=== PATIENT | female | born 1955 | race Caucasian/White ===

== ENCOUNTER 2022-01-27 16:24 | Inpatient (IN) | payer BC, MEDICARE ==
[~2022-01-27] VITALS: Ht 154.9 cm; Wt 108.9 kg
[2022-01-27 17:08] LABS: HEMATOCRIT. 25.6 % (36.0-48.0); HEMOGLOBIN. 8.6 g/dL (12.0-16.0); MEAN CORPUSCULAR HEMOGLOBIN 30.2 pg (28.0-32.0); MEAN CORPUSCULAR VOLUME 89.9 fL (81.0-99.0); MEAN PLATELET VOLUME 8.5 fl (7.4-10.4); PLATELET 259 x1000/uL (130-400); RED BLOOD CELL COUNT 2.85 mill/uL (4.2-5.4); RED CELL DISTRIBUTION WIDTH 15.7 % (11.6-14.6)
[2022-01-27 17:12] LABS: CHLORIDE 95 mEq/L (98-107)
[2022-01-27] MEDS ORDERED: ASPIRIN 325MG EC TABLET PO ONE (17:15)
[2022-01-27] MEDS ORDERED: NITROGLYCERIN 0.4MG TABLET SL SL ONE (17:15)
[2022-01-27] MEDS ORDERED: FAMOTIDINE 20MG/2ML VIAL IV ONE (18:15)
[2022-01-27 18:23] LABS: PLATELET ESTIMATE NORMAL
[2022-01-27] MEDS ORDERED: AZITHROMYCIN 500MG/250ML 250 ML IV ONE (22:15)
[2022-01-27] MEDS ORDERED: CEFTRIAXONE 1 G PREMIX 50 ML IV ONE (22:15)
[2022-01-27] MEDS ORDERED: ENOXAPARIN 80MG/0.8ML SYR SUBCUT ONE (23:00)
[2022-01-27] MEDS ORDERED: IOHEXOL-350 100 ML BOTTLE ONE (23:36)
[2022-01-28] MEDS ORDERED: VISCOUS LIDOCAINE 2% 15 ML UDC PO PRN ×2 (03:00→03:15)
[2022-01-28] MEDS ORDERED: MAGNESIUM/ALUMINUM HYDROXIDE/SIMETHICONE 30ML UDC PO PRN ×2 (03:00→11:45)
[2022-01-28] MEDS: ACETAMINOPHEN 325MG TABLET PO PRN ×2 (03:19→12:56)
[2022-01-28 10:18] LABS: INR 1.1; PROTHROMBIN TIME 11.8 sec (9.6-11.0)
[2022-01-28 10:20] VITALS: BP 159/63
[2022-01-28] MEDS ORDERED: ENOXAPARIN 100MG/ML SYR SUBCUT SCH (11:30)
[2022-01-28] MEDS ORDERED: NALOXONE HCL 0.4MG/ML VIAL IV PRN (11:45)
[2022-01-28] MEDS ORDERED: DEXTROSE 50% WATER 50ML SYRINGE IV PRN ×2 (11:45)
[2022-01-28 12:00] VITALS: BP 141/55
[2022-01-28] MEDS: BLOOD SUGAR DIAGNOSTIC STRIP TEST SCH ×3 (12:21→21:50)
[2022-01-28] MEDS: INSULIN LISPRO 100 UNITS/ML SUBCUT SCH ×3 (12:21→22:23)
[2022-01-28 13:02] LABS: TOTAL IRON BINDING CAPACITY 136 ug/dL (250-450)
[2022-01-28] MEDS ORDERED: LOSA100T32 MT (13:38)
[2022-01-28 16:00] VITALS: BP 138/72
[2022-01-28] MEDS ORDERED: GLIP2.5T3 PO (17:43)
[2022-01-28] MEDS ORDERED: LEVO137T2 MT (17:43)
[2022-01-28] MEDS ORDERED: DILT300T10 PO (17:43)
[2022-01-28] MEDS ORDERED: HYDR-4135 PO (17:43)
[2022-01-28] MEDS ORDERED: EPOE20002 IJ (17:43)
[2022-01-28] MEDS ORDERED: DILT300C25 MT (17:43)
[2022-01-28] MEDS ORDERED: TRAZ-251 PO (17:43)
[2022-01-28 20:00] VITALS: BP 166/68
[2022-01-28] MEDS ORDERED: EPOETIN ALFA-EPBX 10,000 UNIT/ML VIAL SUBCUT SCH (21:00)
[2022-01-28] MEDS ORDERED: EPOETIN ALFA-EPBX 4,000 UNIT/ML VIAL SUBCUT SCH (21:00)
[2022-01-28] MEDS ORDERED: EPOETIN ALFA 2,000 UNIT/ML VIAL SUBCUT SCH (21:00)
[2022-01-28] MEDS: CEFTRIAXONE 1,000 MG in DEXTROSE 5% WATER 50 ML IV SCH (21:50)
[2022-01-28] MEDS: ENOXAPARIN 100MG/ML SYR SUBCUT SCH (21:51)
[2022-01-28] MEDS: ONDANSETRON HCL 4MG/2ML INJ IV PRN (22:06)
[2022-01-28] MEDS: CLONIDINE 0.1MG TABLET PO PRN (22:50)
[2022-01-28] MEDS: HYDROCODONE/ACETAMINOPHEN 5/325MG TABLET PO PRN (22:50)
[2022-01-29] VITALS: BP 102/69
[2022-01-29 00:19] LABS: CREATINE KINASE MB FRACTION 5.2 ng/mL (0.5-3.6)
[2022-01-29 04:00] VITALS: BP 136/67
[2022-01-29] MEDS: ACETAMINOPHEN 325MG TABLET PO PRN ×2 (06:40→18:47)
[2022-01-29] MEDS: BLOOD SUGAR DIAGNOSTIC STRIP TEST SCH ×4 (06:41→21:49)
[2022-01-29] MEDS: LEVOTHYROXINE SODIUM 137MCG TABLET PO SCH (06:41)
[2022-01-29] MEDS: OMEPRAZOLE 20MG CAPSULE EXTENDED RELEASE PO SCH (06:49)
[2022-01-29 07:38] LABS: HEMATOCRIT. 26.8 % (36.0-48.0); HEMOGLOBIN. 8.7 g/dL (12.0-16.0); MEAN CORPUSCULAR HEMOGLOBIN 29.5 pg (28.0-32.0); MEAN CORPUSCULAR VOLUME 90.5 fL (81.0-99.0); MEAN PLATELET VOLUME 8.6 fl (7.4-10.4); PLATELET 270 x1000/uL (130-400); RED BLOOD CELL COUNT 2.96 mill/uL (4.2-5.4); RED CELL DISTRIBUTION WIDTH 16.2 % (11.6-14.6)
[2022-01-29 07:39] LABS: PHOSPHORUS 5.8 mg/dL (2.5-4.9)
[2022-01-29 07:41] LABS: T4 FREE 0.95 ng/dL (0.76-1.46)
[2022-01-29] MEDS: INSULIN LISPRO 100 UNITS/ML SUBCUT SCH ×4 (07:42→21:00)
[2022-01-29 08:00] VITALS: BP 150/57
[2022-01-29] MEDS: GLIPIZIDE XL 2.5MG TABLET PO SCH (08:57)
[2022-01-29] MEDS ORDERED: HYDRALAZINE HCL 50MG TABLET PO SCH (09:00)
[2022-01-29] MEDS ORDERED: DILTIAZEM HCL 300MG CAPSULE SR 24HR PO SCH (09:00)
[2022-01-29 12:00] VITALS: BP 137/50
[2022-01-29 16:00] VITALS: BP 145/50
[2022-01-29] MEDS: NITROGLYCERIN 0.4MG TABLET SL SL PRN ×2 (17:16→17:44)
[2022-01-29] MEDS: METOPROLOL TARTRATE 50MG TABLET PO SCH (17:43)
[2022-01-29] MEDS: HYDROCODONE/ACETAMINOPHEN 5/325MG TABLET PO PRN (18:48)
[2022-01-29 19:19] LABS: PLATELET ESTIMATE NORMAL
[2022-01-29] MEDS: ONDANSETRON HCL 4MG/2ML INJ IV PRN (19:47)
[2022-01-29 19:53] VITALS: BP 139/57
[2022-01-29] MEDS: CEFTRIAXONE 1,000 MG in DEXTROSE 5% WATER 50 ML IV SCH (21:49)
[2022-01-29] MEDS: ENOXAPARIN 100MG/ML SYR SUBCUT SCH (21:49)
[2022-01-30] VITALS: BP 153/48
[2022-01-30 01:38] LABS: CLARITY URINE CLOUDY (CLEAR); COLOR URINE YELLOW (YELLOW); KETONES URINE TRACE (NEGATIVE); LEUKOCYTE ESTERASE URINE 2+ (NEGATIVE); NITRITE URINE NEGATIVE (NEGATIVE); OCCULT BLOOD URINE TRACE (NEGATIVE); PROTEIN URINE 3+ (NEGATIVE); SPECIFIC GRAVITY URINE 1.026 (1.005-1.030); UROBILINOGEN URINE 0.2 E.U./dL (0.2-1.0)
[2022-01-30] MEDS: ACETAMINOPHEN 325MG TABLET PO PRN ×2 (01:58→12:19)
[2022-01-30 04:00] VITALS: BP 160/55
[2022-01-30] MEDS: METOPROLOL TARTRATE 50MG TABLET PO SCH ×2 (05:33→17:39)
[2022-01-30] MEDS: BLOOD SUGAR DIAGNOSTIC STRIP TEST SCH ×4 (06:39→21:04)
[2022-01-30] MEDS: LEVOTHYROXINE SODIUM 137MCG TABLET PO SCH (06:40)
[2022-01-30] MEDS: OMEPRAZOLE 20MG CAPSULE EXTENDED RELEASE PO SCH (06:40)
[2022-01-30 07:13] LABS: HEMATOCRIT. 26.5 % (36.0-48.0); HEMOGLOBIN. 8.7 g/dL (12.0-16.0); MEAN CORPUSCULAR HEMOGLOBIN 29.9 pg (28.0-32.0); MEAN CORPUSCULAR VOLUME 90.6 fL (81.0-99.0); MEAN PLATELET VOLUME 8.2 fl (7.4-10.4); PLATELET 256 x1000/uL (130-400); RED BLOOD CELL COUNT 2.93 mill/uL (4.2-5.4); RED CELL DISTRIBUTION WIDTH 16.1 % (11.6-14.6)
[2022-01-30] MEDS: INSULIN LISPRO 100 UNITS/ML SUBCUT SCH ×4 (07:32→21:00)
[2022-01-30 08:00] VITALS: BP 158/62
[2022-01-30] MEDS: GLIPIZIDE XL 2.5MG TABLET PO SCH (08:50)
[2022-01-30] MEDS ORDERED: LOSARTAN POTASSIUM 50 MG TABLET PO SCH (09:00)
[2022-01-30 10:48] LABS: PLATELET ESTIMATE NORMAL
[2022-01-30] MEDS ORDERED: IPRATROPIUM/ALBUTEROL 0.5-3(2.5)MG/3ML NEB HHN PRN (11:15)
[2022-01-30 12:00] VITALS: BP 163/57
[2022-01-30] MEDS: CLONIDINE 0.1MG TABLET PO PRN (12:19)
[2022-01-30] MEDS: ASPIRIN 81MG EC TABLET PO SCH (12:19)
[2022-01-30 16:00] VITALS: BP 146/60
[2022-01-30] MEDS: LOSARTAN POTASSIUM 50 MG TABLET PO SCH (17:38)
[2022-01-30 20:00] VITALS: BP 157/52
[2022-01-30] MEDS ORDERED: EPOETIN ALFA-EPBX 10,000 UNIT/ML VIAL SUBCUT SCH (21:00)
[2022-01-30] MEDS: CEFTRIAXONE 1,000 MG in DEXTROSE 5% WATER 50 ML IV SCH (21:13)
[2022-01-30] MEDS: ENOXAPARIN 100MG/ML SYR SUBCUT SCH (21:13)
[2022-01-31] VITALS (7 sets, daily range): BP systolic 115–177; BP diastolic 48–70
[2022-01-31] MEDS: METOPROLOL TARTRATE 50MG TABLET PO SCH ×2 (06:00→17:47)
[2022-01-31] MEDS: OMEPRAZOLE 20MG CAPSULE EXTENDED RELEASE PO SCH (06:20)
[2022-01-31] MEDS: LEVOTHYROXINE SODIUM 137MCG TABLET PO SCH (06:20)
[2022-01-31] MEDS: BLOOD SUGAR DIAGNOSTIC STRIP TEST SCH ×4 (06:27→21:48)
[2022-01-31 07:47] LABS: HEMATOCRIT. 28.4 % (36.0-48.0); HEMOGLOBIN. 9.2 g/dL (12.0-16.0); MEAN CORPUSCULAR HEMOGLOBIN 29.5 pg (28.0-32.0); MEAN CORPUSCULAR VOLUME 90.8 fL (81.0-99.0); MEAN PLATELET VOLUME 8.4 fl (7.4-10.4); PLATELET 253 x1000/uL (130-400); RED BLOOD CELL COUNT 3.13 mill/uL (4.2-5.4); RED CELL DISTRIBUTION WIDTH 16.1 % (11.6-14.6)
[2022-01-31] MEDS: INSULIN LISPRO 100 UNITS/ML SUBCUT SCH ×4 (07:50→21:00)
[2022-01-31] MEDS: GLIPIZIDE XL 2.5MG TABLET PO SCH (08:08)
[2022-01-31] MEDS: ASPIRIN 81MG EC TABLET PO SCH (09:03)
[2022-01-31] MEDS: LOSARTAN POTASSIUM 50 MG TABLET PO SCH ×2 (09:04→17:45)
[2022-01-31] MEDS ORDERED: OXYMETAZOLINE HCL NASAL SPRAY 15ML BOTHNSTRLS PRN (12:00)
[2022-01-31] MEDS: ACETAMINOPHEN 325MG TABLET PO PRN (17:46)
[2022-01-31] MEDS: CLONIDINE 0.1MG TABLET PO PRN ×2 (17:46→23:20)
[2022-01-31] MEDS: CEFTRIAXONE 1,000 MG in DEXTROSE 5% WATER 50 ML IV SCH (20:14)
[2022-01-31] MEDS: ENOXAPARIN 100MG/ML SYR SUBCUT SCH (20:15)
[2022-01-31] MEDS: AMLODIPINE 2.5MG TABLET PO SCH (20:15)
[2022-02-01] MEDS: ACETAMINOPHEN 325MG TABLET PO PRN (01:32)
[2022-02-01] MEDS: MORPHINE SULFATE 4 MG/ML CPJ (NOT FOR IM USE) IV PRN ×2 (02:53→13:20)
[2022-02-01 03:47] VITALS: BP 160/62
[2022-02-01] MEDS: METOPROLOL TARTRATE 50MG TABLET PO SCH ×2 (05:51→17:52)
[2022-02-01] MEDS: BLOOD SUGAR DIAGNOSTIC STRIP TEST SCH ×3 (06:22→17:20)
[2022-02-01] MEDS: LEVOTHYROXINE SODIUM 137MCG TABLET PO SCH (06:22)
[2022-02-01] MEDS ORDERED: FAMOTIDINE 20MG TABLET PO SCH (07:20)
[2022-02-01 07:56] LABS: PLATELET ESTIMATE NORMAL
[2022-02-01 08:00] VITALS: BP 151/42
[2022-02-01 08:48] LABS: HEMATOCRIT. 23.5 % (36.0-48.0); HEMOGLOBIN. 7.9 g/dL (12.0-16.0); MEAN CORPUSCULAR VOLUME 89.2 fL (81.0-99.0); PLATELET 269 x1000/uL (130-400); RED BLOOD CELL COUNT 2.63 mill/uL (4.2-5.4); RED CELL DISTRIBUTION WIDTH 16.1 % (11.6-14.6)
[2022-02-01] MEDS: LOSARTAN POTASSIUM 50 MG TABLET PO SCH ×2 (09:06→17:00)
[2022-02-01] MEDS: ASPIRIN 81MG EC TABLET PO SCH (09:06)
[2022-02-01] MEDS: AMLODIPINE 2.5MG TABLET PO SCH (09:06)
[2022-02-01] MEDS: INSULIN LISPRO 100 UNITS/ML SUBCUT SCH ×3 (09:06→17:50)
[2022-02-01 10:51] LABS: PLATELET ESTIMATE NORMAL
[2022-02-01 12:00] VITALS: BP 160/42
[2022-02-01] MEDS: CLONIDINE 0.1MG TABLET PO PRN (13:19)
[2022-02-01] MEDS ORDERED: ASPI-1406 PO (15:49)
[2022-02-01 16:00] VITALS: BP 120/45
[2022-02-01 17:35] VITALS: BP 120/45
[2022-02-01] MEDS: ONDANSETRON HCL 4MG/2ML INJ IV PRN (18:32)
== END 2022-02-01 19:00 | disposition home or self-care (01) | DRG 871 ==
LOC: ER 16:24 → 6WST 01-28 00:34 → EDBEDREQ 01-28 08:00
PROVIDERS: ADMIT Internal Medicine; ATTEND Internal Medicine
PROC: 3E1M39Z Irrigation of Peritoneal Cavity using Dialysate, Percutaneous Approach (ICD-10-PCS; principal; 2022-01-28)
DX: A41.9 Sepsis, unspecified organism (principal); J18.9 Pneumonia, unspecified organism; J96.01 Acute respiratory failure with hypoxia; I21.4 Non-ST elevation (NSTEMI) myocardial infarction; N18.6 End stage renal disease; E44.0 Moderate protein-calorie malnutrition; I13.2 Hypertensive heart and chronic kidney disease with heart failure and with stage 5 chronic kidney disease, or end stage renal disease; N39.0 Urinary tract infection, site not specified; E66.2 Morbid (severe) obesity with alveolar hypoventilation; Z68.42 Body mass index [BMI] 45.0-49.9, adult; D50.9 Iron deficiency anemia, unspecified; D63.8 Anemia in other chronic diseases classified elsewhere; E03.9 Hypothyroidism, unspecified; E11.22 Type 2 diabetes mellitus with diabetic chronic kidney disease; E11.649 Type 2 diabetes mellitus with hypoglycemia without coma; R07.81 Pleurodynia; E78.00 Pure hypercholesterolemia, unspecified; E78.5 Hyperlipidemia, unspecified; I27.20 Pulmonary hypertension, unspecified; I48.91 Unspecified atrial fibrillation; R04.0 Epistaxis; U09.9 Post COVID-19 condition, unspecified; Z20.822 Contact with and (suspected) exposure to COVID-19; Z99.2 Dependence on renal dialysis; Z88.8 Allergy status to other drugs, medicaments and biological substances; R79.89 Other specified abnormal findings of blood chemistry
CPT/HCPCS: 36415; 71045; 71275; 80048; 80053; 80061; 80076; 81003; 82550; 82553; 82962; 83036; 83540; 83550; 83605; 83735; 83880; 84100; 84145; 84439; 84443; 84484; 85025; 85379; 87426; 93005; 93306; 93970; 99285; A6261; C1893; J0456; J0696; J0885; J1650; J1815; J2270; J2405; J3490; J7060; Q9967

== ENCOUNTER 2023-02-08 05:47 | Inpatient (IN) | payer MEDICARE ==
[~2023-02-08] VITALS: Ht 165.1 cm; Wt 108.4 kg
[~2023-02-08 05:47] MED LIST: ASPI-1406 PO; DILT300T10 PO; EPOE20002 IJ; HYDR-4135 PO; LEVO137T2 MT; LOSA100T32 MT; TRAZ-251 PO
[2023-02-08 06:29] LABS: BG CARBOXYHEMOGLOBIN 0.6 % (0.5-1.5); BG DEOXYHEMOGLOBIN 9.5 % (0.0-5.0); BG FRACTION INSPIRED OXYGEN 36; BG HCO3 ACT 26.2 mmol/L (22.0-26.0); BG METHEMOGLOBIN 0.1 % (0.0-1.5); BG OXYGEN SATURATION 90.4 % (92.0-98.5); BG OXYHEMOGLOBIN 89.8 % (94.0-97.0); BG PH 7.392 (7.350-7.450); BG PO2 64.5 mmHg (75.0-100.0); BG SAMPLE SITE LEFT BRACHIAL; BG TOTAL HEMOGLOBIN 9.8 g/dL (12.0-18.0); BG VENT MODE NASAL CANNULA
[2023-02-08 06:45] LABS: HEMATOCRIT. 27.2 % (36.0-48.0); HEMOGLOBIN. 8.8 g/dL (12.0-16.0); MEAN CORPUSCULAR HEMOGLOBIN 31.4 pg (28.0-32.0); MEAN CORPUSCULAR VOLUME 97.4 fL (81.0-99.0); MEAN PLATELET VOLUME 9.4 fl (7.4-10.4); PLATELET 237 x1000/uL (130-400); RED CELL DISTRIBUTION WIDTH 16.6 % (11.6-14.6)
[2023-02-08 07:04] LABS: PROTHROMBIN TIME 10.3 sec (9.6-11.0)
[2023-02-08] MEDS ORDERED: AZITHROMYCIN 500MG/250ML 250 ML IV ONE (07:15)
[2023-02-08] MEDS ORDERED: CEFTRIAXONE 1GM PREMIX 50 ML IV ONE (07:15)
[2023-02-08 09:25] LABS: PLATELET ESTIMATE NORMAL
[2023-02-08 09:55] LABS: CHLORIDE 103 mEq/L (98-107)
[2023-02-08] MEDS ORDERED: ALBUTEROL (0.083%) 2.5MG/3ML NEB HHN ONE (12:15)
[2023-02-08] MEDS ORDERED: DEXTROSE 50% WATER 50ML SYRINGE IV ONE (12:15)
[2023-02-08] MEDS ORDERED: INSULIN REGULAR (HUMULIN R) 300UNITS/3ML VIAL IV ONE (12:15)
[2023-02-08] MEDS ORDERED: SODIUM BICARBONATE 8.4% 1 MEQ/ML 50ML SYR IV ONE (12:15)
[2023-02-08] MEDS ORDERED: SODIUM POLYSTYRENE SULFONATE 15 G/60 ML BOT PO ONE (12:15)
[2023-02-08] MEDS ORDERED: CALCIUM CHLORIDE 1GM/10ML SYR IV ONE (12:15)
[2023-02-08] MEDS ORDERED: IPRATROPIUM/ALBUTEROL 0.5-3(2.5)MG/3ML NEB HHN PRN (13:30)
[2023-02-08] MEDS ORDERED: HYDRALAZINE 20MG/ML VIAL IV NR (20:30)
[2023-02-08 22:00] VITALS: BP 150/62
[2023-02-08] MEDS ORDERED: ZOLPIDEM TARTRATE 5MG TABLET PO PRN (22:45)
[2023-02-08] MEDS ORDERED: ONDANSETRON HCL 4MG/2ML INJ IV PRN (22:45)
[2023-02-08 23:11] VITALS: BP 149/54
[2023-02-08] MEDS: DILTIAZEM HCL 300MG CAPSULE SR 24HR PO SCH (23:34)
[2023-02-08] MEDS: HYDRALAZINE HCL 50MG TABLET PO SCH (23:34)
[2023-02-08] MEDS: ENOXAPARIN 30MG/0.3ML SYR SUBCUT SCH (23:35)
[2023-02-09] VITALS (22 sets, daily range): BP systolic 101–176; BP diastolic 51–84
[2023-02-09 01:10] LABS: HEPATITIS B SURFACE ANTIGEN NEGATIVE
[2023-02-09] MEDS: HYDRALAZINE HCL 50MG TABLET PO SCH (05:23)
[2023-02-09 07:16] LABS: BASOPHILS % 0.7 % (0.0-2.0); EOSINOPHILS % 6.9 % (0.0-5.0); HEMATOCRIT. 28.1 % (36.0-48.0); HEMOGLOBIN. 9.2 g/dL (12.0-16.0); LYMPHOCYTES % 13.9 % (20.0-50.0); MEAN CORPUSCULAR HEMOGLOBIN 31.7 pg (28.0-32.0); MEAN CORPUSCULAR VOLUME 96.9 fL (81.0-99.0); MEAN PLATELET VOLUME 8.9 fl (7.4-10.4); MONOCYTES % 10.1 % (2.0-8.0); NEUTROPHILS % 68.4 % (40.0-76.0); PLATELET 234 x1000/uL (130-400); RED CELL DISTRIBUTION WIDTH 16.5 % (11.6-14.6)
[2023-02-09 07:45] LABS: CREATINE KINASE MB FRACTION 1.7 ng/mL (0.5-3.6)
[2023-02-09] MEDS: DILTIAZEM HCL 300MG CAPSULE SR 24HR PO SCH (09:00)
[2023-02-09] MEDS: LOSARTAN POTASSIUM 100 MG TABLET PO SCH (09:00)
[2023-02-09] MEDS ORDERED: AZITHROMYCIN 500 MG in DEXT 5% WATER 250 ML IV SCH ×2 (09:00→14:00)
[2023-02-09] MEDS: ACETAMINOPHEN 650MG/20.3ML UDC GT PRN (09:48)
[2023-02-09] MEDS: LEVOTHYROXINE SODIUM 137MCG TABLET PO SCH (09:48)
[2023-02-09] MEDS: ASPIRIN 81MG EC TABLET PO SCH (09:49)
[2023-02-09] MEDS ORDERED: IPRATROPIUM BROMIDE (0.02%) 0.5MG/2.5ML NEB HHN PRN (11:30)
[2023-02-09] MEDS ORDERED: ALBUTEROL (0.083%) 2.5MG/3ML NEB HHN PRN (11:30)
[2023-02-09] MEDS ORDERED: CEFTRIAXONE 1GM PREMIX 50 ML IV SCH (13:30)
[2023-02-09] MEDS: CEFTRIAXONE 1,000 MG in DEXTROSE 5% WATER 50 ML IV SCH (13:30)
[2023-02-09] MEDS: HYDRALAZINE HCL 100MG TABLET PO SCH ×2 (13:34→21:05)
[2023-02-09] MEDS: ENOXAPARIN 30MG/0.3ML SYR SUBCUT SCH (20:47)
[2023-02-09] MEDS ORDERED: TRAZODONE HCL 50MG TABLET PO SCH (21:00)
[2023-02-10] VITALS (15 sets, daily range): BP systolic 138–170; BP diastolic 50–84
[2023-02-10] MEDS: ACETAMINOPHEN 650MG/20.3ML UDC GT PRN (04:18)
[2023-02-10] MEDS: HYDRALAZINE HCL 100MG TABLET PO SCH (05:10)
[2023-02-10] MEDS: CEFTRIAXONE 1,000 MG in DEXTROSE 5% WATER 50 ML IV SCH (08:21)
[2023-02-10] MEDS: ASPIRIN 81MG EC TABLET PO SCH (08:22)
[2023-02-10] MEDS: LOSARTAN POTASSIUM 100 MG TABLET PO SCH (08:22)
[2023-02-10] MEDS: LEVOTHYROXINE SODIUM 137MCG TABLET PO SCH (08:22)
[2023-02-10] MEDS: DILTIAZEM HCL 300MG CAPSULE SR 24HR PO SCH (08:26)
[2023-02-10] MEDS ORDERED: CLONIDINE 0.1MG TABLET PO SCH (09:00)
[2023-02-10] MEDS ORDERED: CLON0.1T PO (10:26)
== END 2023-02-10 15:32 | disposition home or self-care (01) | DRG 871 ==
LOC: ER 05:47 → 5EST 22:05
PROVIDERS: ADMIT Internal Medicine; ATTEND Internal Medicine
PROC: 5A09357 Assistance with Respiratory Ventilation, Less than 24 Consecutive Hours, Continuous Positive Airway Pressure (ICD-10-PCS; 2023-02-08)
PROC: 5A1D80Z Performance of Urinary Filtration, Prolonged Intermittent, 6-18 hours Per Day (ICD-10-PCS; principal; 2023-02-09)
PROC: 5A09357 Assistance with Respiratory Ventilation, Less than 24 Consecutive Hours, Continuous Positive Airway Pressure (ICD-10-PCS; 2023-02-09)
PROC: 5A1D80Z Performance of Urinary Filtration, Prolonged Intermittent, 6-18 hours Per Day (ICD-10-PCS; 2023-02-10)
DX: A41.9 Sepsis, unspecified organism (principal); I50.31 Acute diastolic (congestive) heart failure; J18.9 Pneumonia, unspecified organism; J96.01 Acute respiratory failure with hypoxia; N18.6 End stage renal disease; I13.2 Hypertensive heart and chronic kidney disease with heart failure and with stage 5 chronic kidney disease, or end stage renal disease; E87.5 Hyperkalemia; G47.33 Obstructive sleep apnea (adult) (pediatric); E03.9 Hypothyroidism, unspecified; D72.825 Bandemia; D64.9 Anemia, unspecified; E66.9 Obesity, unspecified; E11.22 Type 2 diabetes mellitus with diabetic chronic kidney disease; Z20.822 Contact with and (suspected) exposure to COVID-19; I07.1 Rheumatic tricuspid insufficiency; E78.00 Pure hypercholesterolemia, unspecified; Z79.4 Long term (current) use of insulin; Z68.39 Body mass index [BMI] 39.0-39.9, adult; Z99.2 Dependence on renal dialysis; Z88.2 Allergy status to sulfonamides; Z86.16 Personal history of COVID-19
CPT/HCPCS: 36415; 36600; 71045; 80048; 80053; 82375; 82550; 82553; 82805; 82962; 83880; 84484; 85025; 86705; 86709; 86803; 86850; 86900; 87340; 87426; 87804; 90935; 93005; 93306; 93970; 94640; 94660; 99291; C9803; J0360; J0456; J0696; J1650; J1815; J3490; J7060

== ENCOUNTER 2023-08-20 00:07 | Inpatient (IN) | payer MEDICARE ==
[~2023-08-20] VITALS: Ht 152.4 cm; Wt 99.4 kg
[2023-08-20] VITALS (8 sets, daily range): BP systolic 129–158; BP diastolic 60–79; PULSE 67–89; RESP 16–28; TEMP 97–97.7
[~2023-08-20 00:07] MED LIST changes: +CLON0.1T PO; -LOSA100T32 MT; +LOSA100T33 MT
[2023-08-20 00:45] LABS: BASOPHILS % 0.9 % (0.0-2.0); EOSINOPHILS % 3.6 % (0.0-5.0); HEMOGLOBIN. 10.4 g/dL (12.0-16.0); LYMPHOCYTES % 7.4 % (20.0-50.0); MEAN CORPUSCULAR HEMOGLOBIN 31.5 pg (28.0-32.0); MEAN CORPUSCULAR HGB CONC 32.4 g/dL (31.0-37.0); MEAN CORPUSCULAR VOLUME 97.3 fL (81.0-99.0); MEAN PLATELET VOLUME 9.8 fl (7.4-10.4); NEUTROPHILS % 83.1 % (40.0-76.0); PLATELET 186 x1000/uL (130-400); RED BLOOD CELL COUNT 3.29 mill/uL (4.2-5.4); RED CELL DISTRIBUTION WIDTH 17.1 % (11.6-14.6); WHITE BLOOD COUNT 9.9 x1000/uL (4.5-11.0)
[2023-08-20 00:46] LABS: CHLORIDE 101 mEq/L (98-107); INDEX HEMOLYSI 1 (1-3); INDEX ICTERIC 1 (1-4); INDEX LIPEMIC 1 (1-3); SODIUM 135 mEq/L (136-145)
[2023-08-20 00:56] LABS: ALANINE AMINOTRANSFERASE 43 IU/L (13-61); ALBUMIN 3.4 g/dL (3.4-5.0); ASPARTATE AMINOTRANSFERASE 28 IU/L (15-37); BILIRUBIN TOTAL 0.4 mg/dL (0.1-1.0); CALCIUM 9.4 mg/dL (8.5-10.1); CARBON DIOXIDE 24 mEq/L (21-32); ETHANOL BLOOD < 10 mg/dL (<10); GLUCOSE 321 mg/dL (70-105); NT PRO B-TYPE NATRIURETIC PEP 14660 pg/mL (5-125); PROTEIN TOTAL 7.4 g/dL (6.0-8.3); TROPONIN I HIGH SENSITIVITY 23 ng/L (<54)
[2023-08-20 01:20] LABS: CREATININE 8.8 mg/dL (0.6-1.3); UREA NITROGEN BLOOD 88 mg/dL (7-21)
[2023-08-20] MEDS ORDERED: CLONIDINE 0.2MG TABLET PO ONE (01:30)
[2023-08-20] MEDS ORDERED: HYDRALAZINE 20MG/ML VIAL IV ONE (01:30)
[2023-08-20] MEDS ORDERED: CLONIDINE 0.1MG TABLET PO NR (02:00)
[2023-08-20] MEDS ORDERED: NICARDIPINE 50 MG in SODIUM CHLORIDE 0.9% 230 ML IV PRN ×4 (04:30)
[2023-08-20] MEDS ORDERED: NITROGLYCERIN OINT 1GM/INCH UDPKT TD NR (04:45)
[2023-08-20] MEDS ORDERED: FUROSEMIDE 40MG/4ML VIAL IV NR (04:45)
[2023-08-20] MEDS ORDERED: ONDANSETRON HCL 4MG/2ML INJ IV PRN (13:15)
[2023-08-20] MEDS ORDERED: DEXTROSE 50% WATER 50ML SYRINGE IV PRN (13:15)
[2023-08-20] MEDS ORDERED: ALTEPLASE 2MG/VIAL ITC SCH (18:00)
[2023-08-20] MEDS: BLOOD SUGAR DIAGNOSTIC STRIP TEST SCH (20:56)
[2023-08-20] MEDS: HYDRALAZINE HCL 50MG TABLET PO SCH (20:57)
[2023-08-20] MEDS: ACETAMINOPHEN 325MG TABLET PO PRN (20:57)
[2023-08-20] MEDS: INSULIN LISPRO 100 UNITS/ML SUBCUT SCH (20:57)
[2023-08-20 22:40] LABS: HEPATITIS B SURFACE ANTIGEN NEGATIVE
[2023-08-20 23:06] LABS: HEPATITIS B CORE AB IGM NEGATIVE; HEPATITIS C VIR.AB 0.14 INDEXVAL (0.00-0.80)
[2023-08-20 23:08] LABS: HEPATITIS A AB IGM NEGATIVE (NEGATIVE)
[2023-08-21] VITALS (18 sets, daily range): BP systolic 129–175; BP diastolic 52–96; PULSE 68–81; RESP 16–24; TEMP 97–97.8
[2023-08-21] MEDS: HYDROCODONE/ACETAMINOPHEN 10/325MG TABLET PO PRN ×3 (02:04→17:01)
[2023-08-21] MEDS ORDERED: NALOXONE HCL 0.4MG/ML VIAL IV PRN (02:15)
[2023-08-21] MEDS: INSULIN LISPRO 100 UNITS/ML SUBCUT SCH ×4 (05:45→21:00)
[2023-08-21] MEDS: BLOOD SUGAR DIAGNOSTIC STRIP TEST SCH ×4 (05:45→21:00)
[2023-08-21] MEDS: HYDRALAZINE 20MG/ML VIAL IV PRN (05:53)
[2023-08-21 09:12] LABS: *AMPHETAMINES SCREEN URINE NEGATIVE (NEGATIVE); *BARBITURATES SCREEN URINE NEGATIVE (NEGATIVE); *BENZODIAZEPINES SCREEN URINE NEGATIVE (NEGATIVE); *COCAINE SCREEN URINE NEGATIVE (NEGATIVE); CANNABINOID URINE SCREEN NEGATIVE (NEGATIVE); ECSTASY MDMA SCREEN URINE NEGATIVE (NEGATIVE); METHADONE URINE SCREEN NEGATIVE (NEGATIVE); OPIATES URINE SCREEN NEGATIVE (NEGATIVE); PHENCYCLIDINE URINE SCREEN NEGATIVE (NEGATIVE)
[2023-08-21] MEDS: NIFEDIPINE XL 60MG TAB PO SCH ×2 (09:35→09:38)
[2023-08-21] MEDS: HYDRALAZINE HCL 50MG TABLET PO SCH ×2 (09:35→21:18)
[2023-08-21] MEDS: IPRATROPIUM/ALBUTEROL 0.5-3(2.5)MG/3ML NEB HHN PRN (10:06)
[2023-08-21] MEDS: ENOXAPARIN 40MG/0.4ML SYR SUBCUT SCH (12:53)
[2023-08-21] MEDS: ACETAMINOPHEN 325MG TABLET PO PRN (21:19)
[2023-08-22] VITALS (30 sets, daily range): BP systolic 91–170; BP diastolic 33–126; PULSE 78–108; RESP 16–30; TEMP 97.5–98.7
[2023-08-22] MEDS: FUROSEMIDE 40MG/4ML VIAL IVP SCH ×2 (00:27→08:47)
[2023-08-22] MEDS: BLOOD SUGAR DIAGNOSTIC STRIP TEST SCH ×4 (06:48→20:37)
[2023-08-22] MEDS: INSULIN LISPRO 100 UNITS/ML SUBCUT SCH ×4 (08:10→20:38)
[2023-08-22] MEDS: NIFEDIPINE XL 60MG TAB PO SCH (08:47)
[2023-08-22] MEDS: HYDRALAZINE HCL 50MG TABLET PO SCH (08:47)
[2023-08-22 10:55] LABS: BG BASE EXCESS -7.6 mmol/L (-2.0-2.0); BG CARBOXYHEMOGLOBIN 0.3 % (0.5-1.5); BG DEOXYHEMOGLOBIN 8.5 % (0.0-5.0); BG FRACTION INSPIRED OXYGEN 100; BG HCO3 ACT 21.1 mmol/L (22.0-26.0); BG METHEMOGLOBIN 0.2 % (0.0-1.5); BG OXYGEN SATURATION 91.5 % (92.0-98.5); BG PCO2 59.1 mmHg (35.0-45.0); BG PH 7.171 (7.350-7.450); BG PO2 71.9 mmHg (75.0-100.0); BG SAMPLE SITE RIGHT RADIAL; BG TOTAL HEMOGLOBIN 10.9 g/dL (12.0-18.0); BG TOTAL RESPIRATORY RATE 17 b/min; BG VENT MODE MASK - BIPAP
[2023-08-22] MEDS: IPRATROPIUM/ALBUTEROL 0.5-3(2.5)MG/3ML NEB HHN PRN (11:00)
[2023-08-22] MEDS: IPRATROPIUM/ALBUTEROL 0.5-3(2.5)MG/3ML NEB HHN SCH ×2 (12:37→15:11)
[2023-08-22 13:37] LABS: BG BASE EXCESS -7.9 mmol/L (-2.0-2.0); BG CARBOXYHEMOGLOBIN 0.3 % (0.5-1.5); BG DEOXYHEMOGLOBIN 11.5 % (0.0-5.0); BG FRACTION INSPIRED OXYGEN 100; BG HCO3 ACT 20.5 mmol/L (22.0-26.0); BG METHEMOGLOBIN 0.1 % (0.0-1.5); BG OXYGEN SATURATION 88.5 % (92.0-98.5); BG OXYHEMOGLOBIN 88.1 % (94.0-97.0); BG PCO2 55.8 mmHg (35.0-45.0); BG PH 7.184 (7.350-7.450); BG PO2 63.4 mmHg (75.0-100.0); BG SAMPLE SITE RIGHT RADIAL; BG TOTAL HEMOGLOBIN 10.8 g/dL (12.0-18.0); BG TOTAL RESPIRATORY RATE 30 b/min; BG VENT MODE MASK - BIPAP
[2023-08-22 15:35] LABS: DIFFERENTIAL COMMENT 1; HEMATOCRIT. 31.8 % (36.0-48.0); HEMOGLOBIN. 10.2 g/dL (12.0-16.0); MEAN CORPUSCULAR HEMOGLOBIN 31.7 pg (28.0-32.0); MEAN CORPUSCULAR HGB CONC 32.1 g/dL (31.0-37.0); MEAN CORPUSCULAR VOLUME 98.7 fL (81.0-99.0); MEAN PLATELET VOLUME 9.8 fl (7.4-10.4); PLATELET 150 x1000/uL (130-400); RED BLOOD CELL COUNT 3.22 mill/uL (4.2-5.4); RED CELL DISTRIBUTION WIDTH 16.8 % (11.6-14.6); WHITE BLOOD COUNT 4.6 x1000/uL (4.5-11.0)
[2023-08-22 15:45] LABS: CHLORIDE 99 mEq/L (98-107); INDEX HEMOLYSI 1 (1-3); INDEX ICTERIC 1 (1-4); INDEX LIPEMIC 1 (1-3); POTASSIUM 5.3 mEq/L (3.5-5.1); SODIUM 133 mEq/L (136-145)
[2023-08-22 15:52] LABS: ALANINE AMINOTRANSFERASE 37 IU/L (13-61); ALBUMIN 2.8 g/dL (3.4-5.0); ASPARTATE AMINOTRANSFERASE 30 IU/L (15-37); BILIRUBIN TOTAL 0.6 mg/dL (0.1-1.0); CALCIUM 8.4 mg/dL (8.5-10.1); CARBON DIOXIDE 22 mEq/L (21-32); GLUCOSE 119 mg/dL (70-105); PROTEIN TOTAL 7.1 g/dL (6.0-8.3); UREA NITROGEN BLOOD 68 mg/dL (7-21)
[2023-08-22 16:02] LABS: CREATININE 7.9 mg/dL (0.6-1.3)
[2023-08-22] MEDS: METHYLPREDNISOLONE SOD SUCC 40MG/ML (ACT-O-VIAL) IV SCH (16:11)
[2023-08-22] MEDS: ENOXAPARIN 40MG/0.4ML SYR SUBCUT SCH (16:11)
[2023-08-22 18:04] LABS: PLATELET ESTIMATE NORMAL
[2023-08-22 18:46] LABS: BG BASE EXCESS -10.6 mmol/L (-2.0-2.0); BG CARBOXYHEMOGLOBIN 0.3 % (0.5-1.5); BG FRACTION INSPIRED OXYGEN 100; BG HCO3 ACT 17.1 mmol/L (22.0-26.0); BG METHEMOGLOBIN 0.2 % (0.0-1.5); BG OXYHEMOGLOBIN 92.5 % (94.0-97.0); BG PH 7.189 (7.350-7.450); BG PO2 78.8 mmHg (75.0-100.0); BG SAMPLE SITE RIGHT RADIAL; BG TOTAL HEMOGLOBIN 10.7 g/dL (12.0-18.0); BG VENT MODE VENT - AC
[2023-08-22] MEDS: PROPOFOL 10MG/ML 100ML 100 ML IV PRN (19:06)
[2023-08-23] VITALS (78 sets, daily range): BP systolic 122–182; BP diastolic 43–126; PULSE 82–115; RESP 16–28; TEMP 98–99.8
[2023-08-23] MEDS: METHYLPREDNISOLONE SOD SUCC 40MG/ML (ACT-O-VIAL) IV SCH ×3 (00:13→16:23)
[2023-08-23] MEDS: FUROSEMIDE 40MG/4ML VIAL IVP SCH ×3 (00:13→21:23)
[2023-08-23] MEDS: HYDRALAZINE HCL 50MG TABLET PO SCH ×3 (00:14→21:23)
[2023-08-23] MEDS: HYDRALAZINE 20MG/ML VIAL IV PRN (02:08)
[2023-08-23] MEDS: PROPOFOL 10MG/ML 100ML 100 ML IV PRN ×3 (04:07→20:34)
[2023-08-23 04:41] LABS: HEMOGLOBIN. 9.6 g/dL (12.0-16.0); MEAN CORPUSCULAR HEMOGLOBIN 31.7 pg (28.0-32.0); MEAN CORPUSCULAR HGB CONC 33.2 g/dL (31.0-37.0); MEAN CORPUSCULAR VOLUME 95.6 fL (81.0-99.0); MEAN PLATELET VOLUME 10.4 fl (7.4-10.4); PLATELET 142 x1000/uL (130-400); RED BLOOD CELL COUNT 3.03 mill/uL (4.2-5.4); RED CELL DISTRIBUTION WIDTH 17.1 % (11.6-14.6); WHITE BLOOD COUNT 12.8 x1000/uL (4.5-11.0)
[2023-08-23 04:58] LABS: CALCIUM 8.8 mg/dL (8.5-10.1)
[2023-08-23] MEDS: HYDROCODONE/ACETAMINOPHEN 10/325MG TABLET PO PRN (05:02)
[2023-08-23 05:03] LABS: CREATININE 5.3 mg/dL (0.6-1.3)
[2023-08-23 05:15] LABS: DIFFERENTIAL COMMENT 1
[2023-08-23] MEDS: BLOOD SUGAR DIAGNOSTIC STRIP TEST SCH ×4 (06:32→21:00)
[2023-08-23] MEDS: INSULIN LISPRO 100 UNITS/ML SUBCUT SCH ×4 (06:39→21:31)
[2023-08-23] MEDS: IPRATROPIUM/ALBUTEROL 0.5-3(2.5)MG/3ML NEB HHN SCH ×4 (07:41→20:50)
[2023-08-23 09:47] LABS: BG CARBOXYHEMOGLOBIN 0.1 % (0.5-1.5); BG DEOXYHEMOGLOBIN 1.9 % (0.0-5.0); BG FRACTION INSPIRED OXYGEN 100; BG METHEMOGLOBIN 0.9 % (0.0-1.5); BG OXYGEN SATURATION 98.1 % (92.0-98.5); BG OXYHEMOGLOBIN 97.1 % (94.0-97.0); BG PCO2 47.1 mmHg (35.0-45.0); BG PH 7.342 (7.350-7.450); BG PO2 150.6 mmHg (75.0-100.0); BG SAMPLE SITE RIGHT RADIAL; BG TOTAL HEMOGLOBIN 9.9 g/dL (12.0-18.0); BG VENT MODE VENT - AC
[2023-08-23] MEDS: NIFEDIPINE XL 60MG TAB PO SCH (09:59)
[2023-08-23 11:17] LABS: ANISOCYTOSIS 1+; PLATELET ESTIMATE NORMAL
[2023-08-23] MEDS: ENOXAPARIN 40MG/0.4ML SYR SUBCUT SCH (12:49)
[2023-08-23] MEDS ORDERED: VANCOMYCIN 1,750 MG in DEXT 5% WATER 500 ML IV NR (14:00)
[2023-08-23 18:11] LABS: HEPATITIS B SURFACE ANTIGEN NEGATIVE
[2023-08-23] MEDS: PIPERACILLIN/TAZOBACTAM 3.375 G in DEXTROSE 5% WATER 50 ML IV SCH (18:29)
[2023-08-23 18:39] LABS: HEPATITIS C VIR.AB 0.14 INDEXVAL (0.00-0.80)
[2023-08-23 18:40] LABS: HEPATITIS B CORE AB IGM NEGATIVE
[2023-08-23 18:41] LABS: HEPATITIS A AB IGM NEGATIVE (NEGATIVE)
[2023-08-24] VITALS (93 sets, daily range): BP systolic 129–186; BP diastolic 45–94; PULSE 78–100; RESP 19–25; TEMP 98–99.2
[2023-08-24] MEDS: IPRATROPIUM/ALBUTEROL 0.5-3(2.5)MG/3ML NEB HHN SCH ×6 (00:01→21:11)
[2023-08-24] MEDS: METHYLPREDNISOLONE SOD SUCC 40MG/ML (ACT-O-VIAL) IV SCH ×4 (01:02→21:44)
[2023-08-24] MEDS: PROPOFOL 10MG/ML 100ML 100 ML IV PRN ×5 (01:47→21:20)
[2023-08-24 05:20] LABS: HEMATOCRIT. 28.2 % (36.0-48.0); HEMOGLOBIN. 9.1 g/dL (12.0-16.0); MEAN CORPUSCULAR HGB CONC 32.2 g/dL (31.0-37.0); MEAN CORPUSCULAR VOLUME 96.1 fL (81.0-99.0); MEAN PLATELET VOLUME 10.3 fl (7.4-10.4); PLATELET 188 x1000/uL (130-400); RED BLOOD CELL COUNT 2.94 mill/uL (4.2-5.4); WHITE BLOOD COUNT 17.6 x1000/uL (4.5-11.0)
[2023-08-24 05:25] LABS: DIFFERENTIAL COMMENT 1
[2023-08-24 05:53] LABS: POTASSIUM 4.4 mEq/L (3.5-5.1)
[2023-08-24 06:04] LABS: CALCIUM 9.5 mg/dL (8.5-10.1); CREATININE 4.8 mg/dL (0.6-1.3)
[2023-08-24] MEDS: BLOOD SUGAR DIAGNOSTIC STRIP TEST SCH ×4 (06:13→21:28)
[2023-08-24] MEDS: INSULIN LISPRO 100 UNITS/ML SUBCUT SCH ×4 (06:20→21:44)
[2023-08-24] MEDS: PIPERACILLIN/TAZOBACTAM 3.375 G in DEXTROSE 5% WATER 50 ML IV SCH ×2 (08:28→21:00)
[2023-08-24 08:58] LABS: BG BASE EXCESS -3.8 mmol/L (-2.0-2.0); BG CARBOXYHEMOGLOBIN 0.3 % (0.5-1.5); BG DEOXYHEMOGLOBIN 3.2 % (0.0-5.0); BG FRACTION INSPIRED OXYGEN 70; BG HCO3 ACT 21.2 mmol/L (22.0-26.0); BG METHEMOGLOBIN 0.1 % (0.0-1.5); BG OXYGEN SATURATION 96.8 % (92.0-98.5); BG OXYHEMOGLOBIN 96.4 % (94.0-97.0); BG PCO2 38.4 mmHg (35.0-45.0); BG PO2 94.2 mmHg (75.0-100.0); BG SAMPLE SITE RIGHT BRACHIAL; BG TOTAL HEMOGLOBIN 9.8 g/dL (12.0-18.0); BG VENT MODE VENT - AC
[2023-08-24] MEDS: NIFEDIPINE XL 60MG TAB PO SCH ×2 (09:00→15:21)
[2023-08-24] MEDS: HYDRALAZINE HCL 50MG TABLET PO SCH ×3 (09:00→21:44)
[2023-08-24] MEDS: PANTOPRAZOLE SODIUM 40 MG/VIAL IV SCH (09:07)
[2023-08-24] MEDS: FUROSEMIDE 40MG/4ML VIAL IVP SCH ×2 (09:07→21:43)
[2023-08-24] MEDS: ENOXAPARIN 40MG/0.4ML SYR SUBCUT SCH (09:14)
[2023-08-24 09:22] LABS: ANISOCYTOSIS 1+; PLATELET ESTIMATE NORMAL
[2023-08-24] MEDS: HYDRALAZINE 20MG/ML VIAL IV PRN ×3 (11:09→18:57)
[2023-08-24] MEDS ORDERED: EPOETIN ALFA 4000UNITS/ML VIAL SUBCUT SCH (21:00)
[2023-08-25] VITALS (64 sets, daily range): BP systolic 112–183; BP diastolic 39–82; PULSE 86–100; RESP 18–26; TEMP 97.8–99
[2023-08-25] MEDS: IPRATROPIUM/ALBUTEROL 0.5-3(2.5)MG/3ML NEB HHN SCH ×6 (00:54→20:40)
[2023-08-25] MEDS: HYDRALAZINE 20MG/ML VIAL IV PRN ×2 (01:04→07:29)
[2023-08-25 05:13] LABS: HEMATOCRIT. 29.1 % (36.0-48.0); HEMOGLOBIN. 9.3 g/dL (12.0-16.0); MEAN CORPUSCULAR HGB CONC 31.8 g/dL (31.0-37.0); MEAN CORPUSCULAR VOLUME 97.5 fL (81.0-99.0); MEAN PLATELET VOLUME 9.7 fl (7.4-10.4); PLATELET 196 x1000/uL (130-400); RED BLOOD CELL COUNT 2.99 mill/uL (4.2-5.4); RED CELL DISTRIBUTION WIDTH 17.4 % (11.6-14.6); WHITE BLOOD COUNT 15.2 x1000/uL (4.5-11.0)
[2023-08-25 05:15] LABS: POTASSIUM 4.2 mEq/L (3.5-5.1)
[2023-08-25 05:20] LABS: CALCIUM 8.7 mg/dL (8.5-10.1); CREATININE 4.2 mg/dL (0.6-1.3)
[2023-08-25 05:23] LABS: DIFFERENTIAL COMMENT 1
[2023-08-25] MEDS: BLOOD SUGAR DIAGNOSTIC STRIP TEST SCH ×4 (06:30→21:44)
[2023-08-25] MEDS: METHYLPREDNISOLONE SOD SUCC 40MG/ML (ACT-O-VIAL) IV SCH ×3 (06:38→21:36)
[2023-08-25] MEDS: INSULIN LISPRO 100 UNITS/ML SUBCUT SCH ×4 (06:38→21:44)
[2023-08-25 07:42] LABS: BG BASE EXCESS -3.7 mmol/L (-2.0-2.0); BG CARBOXYHEMOGLOBIN 0.3 % (0.5-1.5); BG DEOXYHEMOGLOBIN 5.6 % (0.0-5.0); BG HCO3 ACT 21.1 mmol/L (22.0-26.0); BG OXYGEN SATURATION 94.4 % (92.0-98.5); BG OXYHEMOGLOBIN 94.1 % (94.0-97.0); BG PCO2 37.1 mmHg (35.0-45.0); BG PH 7.372 (7.350-7.450); BG PO2 74.4 mmHg (75.0-100.0); BG SAMPLE SITE RIGHT RADIAL; BG TOTAL HEMOGLOBIN 10.3 g/dL (12.0-18.0); BG VENT MODE VENT - AC
[2023-08-25] MEDS ORDERED: LIDOCAINE HCL 1% 10 MG/ML 10ML VIAL ONE (08:18)
[2023-08-25] MEDS: FUROSEMIDE 40MG/4ML VIAL IVP SCH ×3 (09:00→21:00)
[2023-08-25] MEDS: HYDRALAZINE HCL 50MG TABLET PO SCH (09:00)
[2023-08-25] MEDS: PIPERACILLIN/TAZOBACTAM 3.375 G in DEXTROSE 5% WATER 50 ML IV SCH ×2 (10:31→21:33)
[2023-08-25] MEDS: PANTOPRAZOLE SODIUM 40 MG/VIAL IV SCH (10:31)
[2023-08-25] MEDS: NIFEDIPINE XL 60MG TAB PO SCH (10:32)
[2023-08-25] MEDS: ENOXAPARIN 40MG/0.4ML SYR SUBCUT SCH (10:32)
[2023-08-25 16:05] LABS: ANISOCYTOSIS 1+; PLATELET ESTIMATE NORMAL
[2023-08-25] MEDS ORDERED: VANCOMYCIN 750MG PREMIX 150 ML IV SCH (21:00)
[2023-08-25] MEDS: HYDRALAZINE HCL 100MG TABLET PO SCH (21:37)
[2023-08-26] VITALS (54 sets, daily range): BP systolic 104–178; BP diastolic 48–66; PULSE 76–96; RESP 17–26; TEMP 97.8–98.9; O2SAT 94
[2023-08-26] MEDS: ACETAMINOPHEN 325MG TABLET PO PRN ×4 (00:16→07:47)
[2023-08-26] MEDS: HYDROCODONE/ACETAMINOPHEN 10/325MG TABLET PO PRN (00:23)
[2023-08-26] MEDS: IPRATROPIUM/ALBUTEROL 0.5-3(2.5)MG/3ML NEB HHN SCH ×6 (00:35→20:18)
[2023-08-26] MEDS: METHYLPREDNISOLONE SOD SUCC 40MG/ML (ACT-O-VIAL) IV SCH ×3 (06:11→21:55)
[2023-08-26] MEDS: INSULIN LISPRO 100 UNITS/ML SUBCUT SCH ×4 (06:11→21:00)
[2023-08-26] MEDS: BLOOD SUGAR DIAGNOSTIC STRIP TEST SCH ×4 (06:34→22:00)
[2023-08-26] MEDS: NIFEDIPINE XL 60MG TAB PO SCH (07:48)
[2023-08-26] MEDS: HYDRALAZINE HCL 100MG TABLET PO SCH ×3 (07:49→23:54)
[2023-08-26] MEDS: ENOXAPARIN 40MG/0.4ML SYR SUBCUT SCH (07:49)
[2023-08-26] MEDS: FUROSEMIDE 40MG/4ML VIAL IVP SCH ×2 (07:50→21:55)
[2023-08-26] MEDS: PANTOPRAZOLE SODIUM 40 MG/VIAL IV SCH (07:52)
[2023-08-26] MEDS: PIPERACILLIN/TAZOBACTAM 3.375 G in DEXTROSE 5% WATER 50 ML IV SCH ×2 (07:52→21:55)
[2023-08-26] MEDS ORDERED: HYDRALAZINE 20MG/ML VIAL IV SCH (08:00)
[2023-08-26 11:03] LABS: BG BASE EXCESS -1.7 mmol/L (-2.0-2.0); BG CARBOXYHEMOGLOBIN 0.3 % (0.5-1.5); BG DEOXYHEMOGLOBIN 6.4 % (0.0-5.0); BG FRACTION INSPIRED OXYGEN 40; BG HCO3 ACT 23.4 mmol/L (22.0-26.0); BG METHEMOGLOBIN 0.1 % (0.0-1.5); BG OXYGEN SATURATION 93.6 % (92.0-98.5); BG OXYHEMOGLOBIN 93.2 % (94.0-97.0); BG PH 7.374 (7.350-7.450); BG PO2 71.4 mmHg (75.0-100.0); BG SAMPLE SITE RIGHT RADIAL; BG TOTAL HEMOGLOBIN 11.4 g/dL (12.0-18.0); BG VENT MODE VENT - AC
[2023-08-26] MEDS ORDERED: CLONIDINE 0.1MG TABLET PO PRN (11:15)
[2023-08-26 13:27] LABS: BG BASE EXCESS -2.6 mmol/L (-2.0-2.0); BG CARBOXYHEMOGLOBIN 0.3 % (0.5-1.5); BG DEOXYHEMOGLOBIN 6.9 % (0.0-5.0); BG FRACTION INSPIRED OXYGEN 40; BG HCO3 ACT 22.5 mmol/L (22.0-26.0); BG METHEMOGLOBIN 0.3 % (0.0-1.5); BG OXYGEN SATURATION 93.1 % (92.0-98.5); BG OXYHEMOGLOBIN 92.5 % (94.0-97.0); BG PCO2 40.4 mmHg (35.0-45.0); BG PH 7.364 (7.350-7.450); BG PO2 70.9 mmHg (75.0-100.0); BG SAMPLE SITE RIGHT RADIAL; BG TOTAL HEMOGLOBIN 11.5 g/dL (12.0-18.0); BG VENT MODE VENT - CPAP
[2023-08-27] VITALS (39 sets, daily range): BP systolic 119–177; BP diastolic 45–70; PULSE 74–95; RESP 12–26; TEMP 98.4–98.6; O2SAT 93–99
[2023-08-27] MEDS: IPRATROPIUM/ALBUTEROL 0.5-3(2.5)MG/3ML NEB HHN SCH ×4 (00:02→12:45)
[2023-08-27] MEDS ORDERED: HYDRALAZINE HCL 100MG TABLET PO NR (05:00)
[2023-08-27 05:55] LABS: HEMATOCRIT. 31.4 % (36.0-48.0); HEMOGLOBIN. 10.1 g/dL (12.0-16.0); MEAN CORPUSCULAR HEMOGLOBIN 30.9 pg (28.0-32.0); MEAN CORPUSCULAR HGB CONC 32.2 g/dL (31.0-37.0); MEAN CORPUSCULAR VOLUME 95.9 fL (81.0-99.0); MEAN PLATELET VOLUME 9.6 fl (7.4-10.4); PLATELET 166 x1000/uL (130-400); RED BLOOD CELL COUNT 3.27 mill/uL (4.2-5.4); RED CELL DISTRIBUTION WIDTH 16.7 % (11.6-14.6)
[2023-08-27 06:03] LABS: DIFFERENTIAL COMMENT 1
[2023-08-27 06:05] LABS: CALCIUM 8.4 mg/dL (8.5-10.1); POTASSIUM 4.3 mEq/L (3.5-5.1)
[2023-08-27 06:08] LABS: CREATININE 3.7 mg/dL (0.6-1.3)
[2023-08-27] MEDS: BLOOD SUGAR DIAGNOSTIC STRIP TEST SCH ×4 (06:15→21:18)
[2023-08-27] MEDS: METHYLPREDNISOLONE SOD SUCC 40MG/ML (ACT-O-VIAL) IV SCH (06:18)
[2023-08-27] MEDS: INSULIN LISPRO 100 UNITS/ML SUBCUT SCH ×4 (06:22→21:28)
[2023-08-27] MEDS: HYDRALAZINE HCL 100MG TABLET PO SCH ×2 (09:16→17:51)
[2023-08-27] MEDS: PANTOPRAZOLE SODIUM 40 MG/VIAL IV SCH (09:16)
[2023-08-27] MEDS: NIFEDIPINE XL 60MG TAB PO SCH (09:17)
[2023-08-27] MEDS: PIPERACILLIN/TAZOBACTAM 3.375 G in DEXTROSE 5% WATER 50 ML IV SCH ×2 (09:17→21:18)
[2023-08-27] MEDS: ENOXAPARIN 40MG/0.4ML SYR SUBCUT SCH (09:17)
[2023-08-27 12:27] LABS: PLATELET ESTIMATE NORMAL
[2023-08-28] VITALS (33 sets, daily range): BP systolic 98–160; BP diastolic 41–66; PULSE 72–96; RESP 13–21; TEMP 97.2–98.6
[2023-08-28] MEDS: HYDRALAZINE HCL 100MG TABLET PO SCH ×3 (00:27→18:43)
[2023-08-28] MEDS: BLOOD SUGAR DIAGNOSTIC STRIP TEST SCH ×4 (06:43→21:06)
[2023-08-28] MEDS: INSULIN LISPRO 100 UNITS/ML SUBCUT SCH ×4 (06:52→21:05)
[2023-08-28 10:08] LABS: HEMATOCRIT. 34.3 % (36.0-48.0); HEMOGLOBIN. 11.1 g/dL (12.0-16.0); MEAN CORPUSCULAR HEMOGLOBIN 30.8 pg (28.0-32.0); MEAN CORPUSCULAR HGB CONC 32.3 g/dL (31.0-37.0); MEAN CORPUSCULAR VOLUME 95.6 fL (81.0-99.0); MEAN PLATELET VOLUME 9.8 fl (7.4-10.4); PLATELET 175 x1000/uL (130-400); RED BLOOD CELL COUNT 3.58 mill/uL (4.2-5.4); RED CELL DISTRIBUTION WIDTH 16.6 % (11.6-14.6); WHITE BLOOD COUNT 18.8 x1000/uL (4.5-11.0)
[2023-08-28] MEDS: ENOXAPARIN 40MG/0.4ML SYR SUBCUT SCH (10:11)
[2023-08-28] MEDS: PIPERACILLIN/TAZOBACTAM 3.375 G in DEXTROSE 5% WATER 50 ML IV SCH ×2 (10:12→21:06)
[2023-08-28] MEDS: NIFEDIPINE XL 60MG TAB PO SCH (10:12)
[2023-08-28] MEDS: PANTOPRAZOLE SODIUM 40 MG/VIAL IV SCH (10:12)
[2023-08-28 10:14] LABS: POTASSIUM 4.1 mEq/L (3.5-5.1)
[2023-08-28 10:26] LABS: CALCIUM 9.2 mg/dL (8.5-10.1)
[2023-08-28 10:31] LABS: DIFFERENTIAL COMMENT 1
[2023-08-28 10:57] LABS: CREATININE 5.6 mg/dL (0.6-1.3)
[2023-08-28 13:19] LABS: PLATELET ESTIMATE NORMAL
[2023-08-29] VITALS (21 sets, daily range): BP systolic 131–165; BP diastolic 49–72; PULSE 86–96; RESP 14–20; TEMP 98–98.8; O2SAT 98
[2023-08-29] MEDS: HYDRALAZINE HCL 100MG TABLET PO SCH ×2 (01:00→09:33)
[2023-08-29 05:02] LABS: HEMATOCRIT. 35.2 % (36.0-48.0); HEMOGLOBIN. 11.3 g/dL (12.0-16.0); MEAN CORPUSCULAR HEMOGLOBIN 30.6 pg (28.0-32.0); MEAN CORPUSCULAR HGB CONC 32.1 g/dL (31.0-37.0); MEAN CORPUSCULAR VOLUME 95.4 fL (81.0-99.0); MEAN PLATELET VOLUME 9.3 fl (7.4-10.4); PLATELET 163 x1000/uL (130-400); RED BLOOD CELL COUNT 3.69 mill/uL (4.2-5.4); RED CELL DISTRIBUTION WIDTH 16.5 % (11.6-14.6); WHITE BLOOD COUNT 13.3 x1000/uL (4.5-11.0)
[2023-08-29 05:13] LABS: POTASSIUM 3.7 mEq/L (3.5-5.1)
[2023-08-29 05:18] LABS: CALCIUM 9.3 mg/dL (8.5-10.1)
[2023-08-29 05:57] LABS: DIFFERENTIAL COMMENT 1
[2023-08-29] MEDS: INSULIN LISPRO 100 UNITS/ML SUBCUT SCH ×2 (06:15→12:40)
[2023-08-29] MEDS: BLOOD SUGAR DIAGNOSTIC STRIP TEST SCH ×2 (06:15→11:30)
[2023-08-29] MEDS ORDERED: LEVO250T74 MT (09:22)
[2023-08-29] MEDS: ENOXAPARIN 40MG/0.4ML SYR SUBCUT SCH (09:32)
[2023-08-29] MEDS: NIFEDIPINE XL 60MG TAB PO SCH (09:32)
[2023-08-29] MEDS: PANTOPRAZOLE SODIUM 40 MG/VIAL IV SCH (09:32)
[2023-08-29 10:27] LABS: ANISOCYTOSIS 1+; PLATELET ESTIMATE NORMAL
== END 2023-08-29 15:02 | disposition home or self-care (01) | DRG 208 ==
LOC: ER 00:10 → 7WST 04:18 → EDBEDREQSVC 09:21 → ER 12:40 → 5EST 08-22 12:46 → MICUSO 08-22 18:24
PROVIDERS: ADMIT Internal Medicine; ATTEND Internal Medicine
PROC: 5A09357 Assistance with Respiratory Ventilation, Less than 24 Consecutive Hours, Continuous Positive Airway Pressure (ICD-10-PCS; 2023-08-20)
PROC: 5A1D70Z Performance of Urinary Filtration, Intermittent, Less than 6 Hours Per Day (ICD-10-PCS; 2023-08-20)
PROC: 5A1D70Z Performance of Urinary Filtration, Intermittent, Less than 6 Hours Per Day (ICD-10-PCS; 2023-08-21)
PROC: 5A09357 Assistance with Respiratory Ventilation, Less than 24 Consecutive Hours, Continuous Positive Airway Pressure (ICD-10-PCS; principal; 2023-08-22)
PROC: 5A1945Z Respiratory Ventilation, 24-96 Consecutive Hours (ICD-10-PCS; 2023-08-22)
PROC: 0BH17EZ Insertion of Endotracheal Airway into Trachea, Via Natural or Artificial Opening (ICD-10-PCS; 2023-08-22)
PROC: 5A1D70Z Performance of Urinary Filtration, Intermittent, Less than 6 Hours Per Day (ICD-10-PCS; 2023-08-22)
PROC: 5A1D70Z Performance of Urinary Filtration, Intermittent, Less than 6 Hours Per Day (ICD-10-PCS; 2023-08-23)
PROC: 5A1D70Z Performance of Urinary Filtration, Intermittent, Less than 6 Hours Per Day (ICD-10-PCS; 2023-08-24)
PROC: 05H533Z Insertion of Infusion Device into Right Subclavian Vein, Percutaneous Approach (ICD-10-PCS; 2023-08-25)
PROC: B546ZZA Ultrasonography of Right Subclavian Vein, Guidance (ICD-10-PCS; 2023-08-25)
PROC: 5A1D70Z Performance of Urinary Filtration, Intermittent, Less than 6 Hours Per Day (ICD-10-PCS; 2023-08-25)
PROC: 5A1D70Z Performance of Urinary Filtration, Intermittent, Less than 6 Hours Per Day (ICD-10-PCS; 2023-08-26)
PROC: 5A1D70Z Performance of Urinary Filtration, Intermittent, Less than 6 Hours Per Day (ICD-10-PCS; 2023-08-28)
DX: J96.01 Acute respiratory failure with hypoxia (principal); J18.9 Pneumonia, unspecified organism; N18.6 End stage renal disease; I13.2 Hypertensive heart and chronic kidney disease with heart failure and with stage 5 chronic kidney disease, or end stage renal disease; G93.40 Encephalopathy, unspecified; Z68.41 Body mass index [BMI] 40.0-44.9, adult; J96.02 Acute respiratory failure with hypercapnia; I16.0 Hypertensive urgency; Z20.822 Contact with and (suspected) exposure to COVID-19; Z99.2 Dependence on renal dialysis; E66.01 Morbid (severe) obesity due to excess calories; I50.9 Heart failure, unspecified; G47.33 Obstructive sleep apnea (adult) (pediatric); E11.65 Type 2 diabetes mellitus with hyperglycemia; E03.9 Hypothyroidism, unspecified; E78.00 Pure hypercholesterolemia, unspecified; D63.8 Anemia in other chronic diseases classified elsewhere; D72.825 Bandemia; E11.22 Type 2 diabetes mellitus with diabetic chronic kidney disease; Z86.16 Personal history of COVID-19; Z88.2 Allergy status to sulfonamides; Z88.3 Allergy status to other anti-infective agents; Z88.8 Allergy status to other drugs, medicaments and biological substances; Z79.899 Other long term (current) drug therapy
CPT/HCPCS: 31500; 36415; 36573; 36600; 71045; 80048; 80053; 80202; 80305; 80320; 82375; 82805; 82962; 83880; 84145; 84478; 84484; 85018; 85025; 86705; 86709; 86803; 87340; 87426; 90935; 93005; 93970; 94002; 94003; 94640; 94660; 97162; 97166; 97535; 99291; A6261; C1725; C9113; C9803; J0360; J0885; J1650; J1815; J1940; J2543; J2704; J2920; J2997; J3370; J3490; J7060; G0480